=== PATIENT | male | born 1965 | race Caucasian/White ===

== ENCOUNTER 2022-10-12 08:00 | Outpatient (CLI) | payer OTHER ==
--- NOTE | 2022-10-13 09:05 | XRAY Report ---
PROCEDURE: Finger(s) LT INDICATIONS: LACERATION TO LEFT INDEX FINGER TECHNIQUE: AP hand, 2 views of the second finger(s) acquired. COMPARISON: None FINDINGS: Bones: No acute fractures or dislocations. Old ulnar styloid fracture is suspected with corticated ossicles. Severe distal radioulnar joint degeneration. Moderate to mild degenerative joint disease in wrist and hand. No suspicious bony lesions. Soft tissues: No suspicious soft tissue calcifications. IMPRESSION: 1. No acute osseous abnormalities. 2. Suspect old ulnar styloid fracture. 3. Degenerative joint disease. Reviewed by: Sushila Pierce MD on 10/13/2022 9:03 AM [facility] Approved by: Sushila Pierce MD on 10/13/2022 9:03 AM PST Station ID: [id number]
== END 2022-10-12 13:59 | disposition home or self-care (01) ==
LOC: DI.S 08:00
PROVIDERS: ATTEND Emergency Medicine
DX: S61.211A Laceration without foreign body of left index finger without damage to nail, initial encounter (principal); M19.042 Primary osteoarthritis, left hand; M19.032 Primary osteoarthritis, left wrist